=== PATIENT | male | born 1960 | race Caucasian/White ===

== ENCOUNTER 2021-10-04 18:11 | Emergency (ER) | payer OTHER ==
[~2021-10-04] VITALS: Ht 172.7 cm; Wt 99.8 kg
[~2021-10-04 18:11] MED LIST: PERCOCET 5/321 UDTAB PO
[2021-10-04] MEDS ORDERED: ASA81 MG (19:08)
== END 2021-10-04 21:10 | disposition home or self-care (01) ==
LOC: ER 18:11
DX: M79.641 Pain in right hand (principal)

== ENCOUNTER 2022-06-28 17:25 | Emergency (ER) | payer OTHER ==
[~2022-06-28] VITALS: Ht 170.2 cm; Wt 97.5 kg
[~2022-06-28 17:25] MED LIST changes: +ASA81 MG
[2022-06-28] MEDS ORDERED: TYLENOL ARTHRI650 MG PO (20:35)
== END 2022-06-28 21:00 | disposition home or self-care (01) ==
LOC: ER 17:25
DX: S99.921A Unspecified injury of right foot, initial encounter (principal); X58.XXXA Exposure to other specified factors, initial encounter; Y93.01 Activity, walking, marching and hiking; Y92.9 Unspecified place or not applicable; Y99.9 Unspecified external cause status

== ENCOUNTER 2023-05-26 10:11 | Emergency (ER) | payer OTHER ==
[~2023-05-26] VITALS: Ht 170.2 cm; Wt 92.5 kg
[~2023-05-26 10:11] MED LIST changes: +TYLENOL ARTHRI650 MG PO
== END 2023-05-26 14:10 | disposition home or self-care (01) ==
LOC: ER 10:11
DX: S49.81XA Other specified injuries of right shoulder and upper arm, initial encounter (principal); W19.XXXA Unspecified fall, initial encounter; Y93.89 Activity, other specified; Y92.69 Other specified industrial and construction area as the place of occurrence of the external cause; Y99.8 Other external cause status